=== PATIENT | female | born 1975 | race Caucasian/White ===

== ENCOUNTER 2022-12-24 21:37 | Observation (INO) | payer OTHER, SELFPAY ==
[2022-12-24 21:51] VITALS: BP 117/94; PULSE 84; RESP 18; TEMP 36.4; O2SAT 98; BMI 20.7
[2022-12-24 22:05] LABS: Appearance Urine Cloudy (Clear); Bilirubin Urine Negative (Negative); Blood Urine Negative (Negative); Color Urine Yellow (Yellow); Glucose Urine Negative (Negative); Ketones Urine Negative (Negative); Leukocyte Esterase Urine Trace (Negative); Nitrite Urine Negative (Negative); Protein Urine Trace (Negative); Urobilinogen Urine 0.2 (0.2-1.0)
--- NOTE | 2022-12-24 22:08 | ED.GENADULT ---
HPI - General Adult General Chief complaint: Flank Pain Stated complaint: flank pain Time Seen by Provider: 12/24/22 22:06 History of Present Illness HPI narrative: patient noticed pain last night around 2129 and unable to sleep much all night. c/o left flank pain radiating to the front of the LLQ. feeling nauseated. taken Tylenol and Motrin with no relief of pain. ice and heat and lidocaine patch to site with no relief still uncomfortable 47-year-old woman presenting to the emergency department with sharp left flank pain beginning around 24 hours ago. She thought maybe she had strained something but this has continued. Acetaminophen and ibuprofen offer no relief. She has tried icing and heat and lidocaine patches. Is restless in discomfort. Simply can not find a position to be comfortable. No dysuria though uncomfortable at the end of urination. No hematuria. Has been nauseated. Has had chills she thinks with the degree of pain. There is somewhat of a colicky nature perhaps? Pain seems to go from the flank now down to the left groin. Cannot do another night like this she says. No family or personal history of kidney stones. Does not think the constipation is the issue. Sounds like was hospitalized at age 19 for pyelonephritis, but she says ?I do not get urinary tract infections?. There is a history of endometriosis on review of record. Status post hysterectomy. It appears that endometriosis was noted to have affected the left ovary but both ovaries remain she reports. She admits that it is possible is currently ovulating. Later as we discuss pain management, noted that has been receiving ketamine infusions more recently for depressive symptoms. Related Data Home Medications Medication Instructions Recorded Confirmed gabapentin 400 mg capsule 400 mg PO TID 12/24/22 12/24/22 bupropion HCl 300 mg 24 hr tablet, 300 mg PO DAILY 12/25/22 12/25/22 extended release lorazepam 1 mg tablet 1 - 2 mg PO HS PRN 12/25/22 12/25/22 Allergies Allergy/AdvReac Type Severity Reaction Status Date / Time Penicillins Allergy Mild Hives Verified 12/24/22 21:56 Sulfa (Sulfonamide Allergy Mild hives Verified 12/24/22 21:56 Antibiotics) Review of Systems Status of ROS: Reports: 6 or more systems reviewed and unremarkable except as noted in History and below [facility] Medical History Anxiety ?F41.9 - Anxiety disorder, unspecified (ICD-10) Depression ?F32.A - Depression, unspecified (ICD-10) Cervical endometriosis ?N80.00 - Endometriosis of the uterus, unspecified (ICD-10) Surgical History S/P bilateral foot surgery ?Z98.890 - Other specified postprocedural states (ICD-10) H/O neck surgery ?Z98.890 - Other specified postprocedural states (ICD-10) H/O: hysterectomy ?Z90.710 - Acquired absence of both cervix and uterus (ICD-10) Social History What is your current living situation?: I presently have a place to live Problems where you live: no known problems Problems where you live details: NONE In the past 12 months, utilities in danger of being shut off: no In the past 12 mos, have been you worried that your food would run out before you had money to buy more?: never true In the past 12 mos, the food you bought just didn't last and you didn't have money to buy more?: never true Smoking Status: Never smoker Do you use any of these nicotine containing products: None How often do you have a drink containing alcohol: never AUDIT-C Alcohol total score: 0 Non-prescribed substance use: denies use Caffeine: Yes (coffee or soda) How often does anyone, including family, friends and others, physically hurt you: never How often does anyone, including family, friends and others, insult or talk down to you: never How often does anyone, including family, friends and others, threaten you with harm: never How often does anyone, including family, friends and others, scream or curse at you: never service: No Exam Narrative: Exam Narrative: Pleasant. Restless. Breathing easily. Skin is warm and dry. Heart in a regular rate and rhythm. She has well-perfused extremities and lower extremities are without edema. Abdomen with very active bowel sounds is soft and not particularly tender. No asymmetry or masses are appreciated. Little uncomfortable I think to palpation left adnexal area and is uncomfortable though to percussion in the left flank. No peritoneal signs. Const: Vital Signs, click to edit/add: Vital Signs - 24 hr 12/24/22 21:51 12/25/22 00:30 12/25/22 01:02 Temperature 97.5 F L Pulse Rate 63 Pulse Rate [Left P ulse Oximeter] 84 80 Respiratory Rate 18 18 16 Blood Pressure 137/82 Blood Pressure [Ri ght Upper Arm] 117/94 H 131/82 Pulse Oximetry 98 98 100 Oxygen Delivery Me thod Room Air Room Air 12/25/22 04:36 Temperature 97.9 F Pulse Rate 57 L Pulse Rate [Left P ulse Oximeter] Respiratory Rate 16 Blood Pressure 113/61 Blood Pressure [Ri ght Upper Arm] Pulse Oximetry 98 Oxygen Delivery Me thod Documenting provider has reviewed patient's vital signs: yes Course Vital Signs Vital signs: Initial Vital Signs Temperature 97.5 F L 12/24/22 21:51 Temperature Source Temporal Artery Scan 12/24/22 21:51 Pulse Rate 84 12/24/22 21:51 Respiratory Rate 18 12/24/22 21:51 Blood Pressure 117/94 H 12/24/22 21:51 Blood Pressure Mean 101 12/24/22 21:51 Blood Pressure Position Sitting 12/24/22 21:51 Pulse Oximetry 98 12/24/22 21:51 Oxygen Delivery Method Room Air 12/24/22 21:51 Vital Signs Temperature 97.5 F L 12/24/22 21:51 Pulse Rate 84 12/24/22 21:51 Respiratory Rate 18 12/24/22 21:51 Blood Pressure 117/94 H 12/24/22 21:51 Pulse Oximetry 98 12/24/22 21:51 Oxygen Delivery Method Room Air 12/24/22 21:51 Temperature 98.2 F 12/25/22 05:26 Pulse Rate 56 L 12/25/22 05:26 Respiratory Rate 16 12/25/22 05:26 Blood Pressure 104/65 12/25/22 05:26 Pulse Oximetry 95 12/25/22 05:26 Oxygen Delivery Method Room Air 12/25/22 05:26 Medical Decision Making MDM Narrative Medical decision making narrative: I suspect more of a urinary tract infection or ureteral colic/stone. I think this is favored by the clinical exam where it is not exactly reproducible. An adnexal issue like ovarian cyst is usually generates more reproducible discomfort on exam. Constipation may be playing a role but this seems atypical for that as well. By the time I am seeing Ms. Tom the urinalysis has been resulted. This is positive for leukocyte esterase, trace and 10 to 25 white cells on microscopy. No red cells. Does not appear to be typical infection but possible. This could also represent presence of ureteral stone. We discussed potential imaging. She would like to defer pending further laboratory evaluation to guide this. IV fluids had been initiated and received ketorolac. This did not help her pain. She also got Zofran. After discussion of further options, is seems preference would be for low-dose/pain dose ketamine infusion. This helped the pain a little bit, ?took the edge off?. Would still appreciate more medication for pain and was ordered for Dilaudid which ultimately took the edge off a little more though pain still quite present. Also received hyoscyamine. Given further Zofran and then Reglan for nausea after vomiting again. Discussed imaging modalities. I would consider doing a CT scan available though given her history Ms. Tom would prefer to start with pelvic/renal ultrasound which I think also is reasonable. We could try to assess the ureteral jets as well and for potential hydronephrosis. Per my conversation with instructional support assistant, has an 8 cm hemorrhagic-type cyst at the left ovary with free fluid in the pelvis. Good blood flow to the left ovary. The right ovary is not visualized. Renal jets are present. There is no hydronephrosis. It would appear unlikely that there is an impassable ureteral stone. The size and leaking of hemorrhagic fluid into the pelvis is a likely cause of somewhat atypical presentation. Pending Radiology over-read, anticipate conversation with developmental services worker on-call. I would consider for admission and surgery as was somewhat difficult to manage pain. Study: US Pelvis PELVIS TV-12/25/2022 2:05:35 AM Ordering Physician: Cathy Gomez Final Report: INDICATION: Left adnexal and flank pain. Endometriosis. History of partial hysterectomy 06/2022 COMPARISON: None available. FINDINGS: Transvaginal ultrasound examination of the female pelvis was performed. The uterus is absent, consistent with hysterectomy. The right ovary cannot be identified. The left ovary is moderately enlarged, measuring 8.7 x 6.3 x 8.7 centimeters. There is a thick-walled cyst measuring up to 3.2 centimeters in diameter, probably a hemorrhagic cyst. This could be an endometrioma however. There is normal color and pulse Doppler flow in the left ovary. There is a moderate amount of free fluid in the cul-de-sac and the left adnexal region. IMPRESSION: Absence of the uterus consistent with hysterectomy. Moderately enlarged left ovary with a complex thick-walled cyst, hemorrhagic cyst versus endometrioma. Unable to identify the right ovary. Moderate amount of free fluid in the cul-de-sac in the left adnexal region. Renal ultrasound was noted to be unremarkable Discussed this case with our OBGYN on-call who also personally reviewed the images. Looks like there is blood flow so less emergent but I do remain impressed with degree of pain that Ms. Tom was having. Perhaps there was some intermittent compromise? On reassessment it does appear that we have finally managed to get control of her pain. She remains concerned about this pain coming back and definitive management of what clearly appears to be inevitable surgery. Will be admitting for further pain control needs and consultation for potential surgery. Pain returning. Dosing diphenhydramine ahead of more hydromorphone. Perhaps this will limit nausea Medical Records Medical records reviewed: Yes I reviewed the patient's medical records Lab Data Lab results reviewed: Yes I reviewed the patient's lab results Labs: Lab Results 12/24/22 12/24/22 Range/Units 22:00 22:50 WBC 5.50 (4.50-11.00) K/uL RBC 3.91 L (4.00-5.20) m/uL Hgb 10.8 L (12.0-16.0) gm/dL Hct 33.8 (33.0-51.0) % MCV 86 (80-100) fL MCH 28 (26-34) pg MCHC 32 (32-36) gm/dL RDW Coeff of Cassi 12.9 (11.5-15.5) % Plt Count 233 (140-440) K/uL Neut % (Auto) 64.7 (42.0-72.0) % Lymph % (Auto) 22.4 (20-44) % Clinch % (Auto) 10.0 (0.0-11.0) % Eos % (Auto) 2.2 (0.0-7.0) % Baso % (Auto) 0.7 (0.0-3.0) % Neut # (Auto) 3.56 (1.7-7.0) K/uL Lymph # (Auto) 1.23 (0.90-2.90) K/uL Clinch # (Auto) 0.60 (0.00-0.90) K/UL Eos # (Auto) 0.12 (0.00-0.50) K/uL Baso # (Auto) 0.04 (0.00-0.30) K/uL Abs Immat Gran (auto) 0.00 (0.00-0.30) K/uL Imm/Tot Granulo (auto) 0.0 % Sodium 138 (135-149) mmol/L Potassium 3.4 L (3.6-5.1) mmol/L Chloride 105 (96-114) mmol/L Carbon Dioxide 24 (20-32) mmol/L BUN 13 (5-24) mg/dL Creatinine 0.7 (0.5-1.5) mg/dL Estimated Creat Clear 83.95 Estimated GFR 109 ml/min Glucose 111 (60-115) mg/dL Calcium 8.6 (8.4-10.6) mg/dL C-Reactive Protein 0.8 (0.5-1.0) mg/dL Urine Color Yellow (Yellow) Urine Appearance Cloudy A (Clear) Urine pH 6.0 (5.0-8.5) Ur Specific [place] 1.020 (1.000-1.030) Urine Protein Trace A (Negative) Urine Glucose (UA) Negative (Negative) Urine Ketones Negative (Negative) Urine Blood Negative (Negative) Urine Nitrite Negative (Negative) Urine Bilirubin Negative (Negative) Urine Urobilinogen 0.2 (0.2-1.0) Ur Leukocyte Esterase Trace A (Negative) Urine RBC 0-2 (0-2) Urine WBC 10-25 A (0-5) Ur Squamous Epith Cells Few (None-Few) Urine Bacteria Few A (None) Urine HCG, Qual Negative (Negative) Discharge Plan Discharge Clinical Impression: Hemorrhagic cyst of ovary, Abdominal pain, Endometriosis Patient Disposition: Admitted As Observation Condition: Improved
[2022-12-24 22:13] LABS: Bacteria Urine Few; RBC Urine 0-2 (0-2); Squamous Epithelial Cell Urine Few (None-Few)
[2022-12-24 22:30] LABS: Ur HCG Qualitative* Negative (Negative)
[2022-12-24] MEDS: 0.9 % SODIUM CHLORIDE 1000 ml 1,000 ML IV (23:01)
[2022-12-24] MEDS: KETOROLAC 30 MG/ML inj IVP (23:03)
[2022-12-24] MEDS: ONDANSETRON 2 MG/ML inj 4 MG IVP (23:03)
[2022-12-24 23:19] LABS: Basophils Absolute Auto 0.04 K/uL (0.00-0.30); Basophils Percent Auto 0.7 % (0.0-3.0); Eosinophils Absolute Auto 0.12 K/uL (0.00-0.50); Eosinophils Percent Auto 2.2 % (0.0-7.0); Hematocrit 33.8 % (33.0-51.0); Hemoglobin* 10.8 gm/dL (12.0-16.0); Lymphocytes Absolute Auto 1.23 K/uL (0.90-2.90); Lymphocytes Percent Auto 22.4 % (20-44); Mean Corpuscular HGB Conc 32 gm/dL (32-36); Mean Corpuscular Hemoglobin 28 pg (26-34); Mean Corpuscular Volume 86 fL (80-100); Neutrophils Absolute Auto 3.56 K/uL (1.7-7.0); Neutrophils Percent Auto 64.7 % (42.0-72.0); Platelet Count* 233 K/uL (140-440); RDW Coefficient of Variation % 12.9 % (11.5-15.5); Red Blood Count 3.91 m/uL (4.00-5.20)
[2022-12-24 23:22] LABS: Slide Review Reflex No
[2022-12-24 23:32] LABS: Chloride* 105 mmol/L (96-114); Potassium* 3.4 mmol/L (3.6-5.1); Sodium* 138 mmol/L (135-149)
[2022-12-24 23:35] LABS: Blood Urea Nitrogen* 13 mg/dL (5-24); Carbon Dioxide* 24 mmol/L (20-32); Creatinine* 0.7 mg/dL (0.5-1.5); Est. Creatinine Clearance* 83.95; Estimated Glomerular Filt Rate 109 ml/min; Glucose* 111 mg/dL (60-115)
[2022-12-24 23:36] LABS: Calcium* 8.6 mg/dL (8.4-10.6)
[2022-12-24] MEDS: KETAMINE HCL 20 MG in 0.9 % SODIUM CHLORIDE 100 ml 100 ML 300.6 MG IVPB (23:37)
[2022-12-24 23:38] LABS: C Reactive Protein* 0.8 mg/dL (0.5-1.0)
[2022-12-25] VITALS (9 sets, daily range): BP systolic 104–137; BP diastolic 61–86; PULSE 56–80; RESP 16–18; TEMP 36.1–36.9; O2SAT 95–100; BMI 21.9
--- NOTE | 2022-12-25 00:24 | CRLHL7_ITS ---
For Patients: As a result of the Cures Act, medical imaging exams and procedure reports are released immediately into your electronic medical record. You may view this report before your referring provider. If you have questions, please contact your health care provider. INDICATION: Left adnexal and flank pain. Endometriosis. History of partial hysterectomy 06/2022 COMPARISON: None available. FINDINGS: Transvaginal ultrasound examination of the female pelvis was performed. The uterus is absent, consistent with hysterectomy. The right ovary cannot be identified. The left ovary is moderately enlarged, measuring 8.7 x 6.3 x 8.7 centimeters. There is a thick-walled cyst measuring up to 3.2 centimeters in diameter, probably a hemorrhagic cyst. This could be an endometrioma however. There is normal color and pulse Doppler flow in the left ovary. There is a moderate amount of free fluid in the cul-de-sac and the left adnexal region. IMPRESSION: Absence of the uterus consistent with hysterectomy. Moderately enlarged left ovary with a complex thick-walled cyst, hemorrhagic cyst versus endometrioma. Unable to identify the right ovary. Moderate amount of free fluid in the cul-de-sac in the left adnexal region. Dictated by Eric Reece MD @ 12/25/2022 2:31:33 AM (Electronically Signed)
[2022-12-25] MEDS: HYDROmorphone 0.5 mg/0.5 ml inj 1 MG IVP (00:28)
[2022-12-25] MEDS: HYOSCYAMINE SULFATE 0.125 MG TAB 0.25 MG SUBLINGUAL (00:55)
--- NOTE | 2022-12-25 01:01 | CRLHL7_ITS ---
For Patients: As a result of the Century Cures Act, medical imaging exams and procedure reports are released immediately into your electronic medical record. You may view this report before your referring provider. If you have questions, please contact your health care provider. INDICATION: Left flank and adnexal pain. COMPARISON: None available. TECHNIQUE: Ultrasound examination of the retroperitoneum was performed with attention to the kidneys. FINDINGS: The kidneys are normal in their size, shape, and location. Cortical echogenicity and thickness is normal. There is no sign of hydronephrosis. The right kidney measures 12.3 x 4.7 x 5.2 cm. The left kidney measures 10.6 x 5.3 x 5.3 cm. There is normal color Doppler flow in both kidneys. The urinary bladder is normal in appearance. Bilateral ureteral jets are present. IMPRESSION: Normal ultrasound examination of the kidneys and urinary bladder. Dictated by Eric Reece MD @ 12/25/2022 2:34:01 AM (Electronically Signed)
[2022-12-25] MEDS: ONDANSETRON 2 MG/ML inj 4 MG IVP (01:15)
[2022-12-25] MEDS: METOCLOPRAMIDE HCL 10 MG in 0.9 % SODIUM CHLORIDE 100 ml 100 ML 306 MG IVPB (02:03)
[2022-12-25] MEDS: HYDROmorphone 0.5 mg/0.5 ml inj IVP ×4 (04:31→15:20)
[2022-12-25] MEDS: diphenhydrAMINE 50 MG/ML inj 12.5 MG IVP ×4 (04:32→22:21)
--- NOTE | 2022-12-25 05:04 | ED.NURSE ---
report to ms reynolds
--- NOTE | 2022-12-25 05:55 | PM.IMCN1 ---
Date of Consult Consult date: 12/25/22 Primary Care Provider: Kevin Newsome MD Consult Narrative Narrative: Samantha Tom is a 47 year old female [facility] Medical History Anxiety ?F41.9 - Anxiety disorder, unspecified (ICD-10) Depression ?F32.A - Depression, unspecified (ICD-10) Cervical endometriosis ?N80.00 - Endometriosis of the uterus, unspecified (ICD-10) Surgical History S/P bilateral foot surgery ?Z98.890 - Other specified postprocedural states (ICD-10) H/O neck surgery ?Z98.890 - Other specified postprocedural states (ICD-10) H/O: hysterectomy ?Z90.710 - Acquired absence of both cervix and uterus (ICD-10) Social History Smoking Status: Never smoker Do you use any of these nicotine containing products: None How often do you have a drink containing alcohol: never AUDIT-C Alcohol total score: 0 Non-prescribed substance use: denies use Meds Home Medications and Allergies Home Medications Medication Instructions Recorded Confirmed Type bupropion HCl 100 mg tablet 300 mg PO TID 12/24/22 12/24/22 History gabapentin 400 mg capsule 400 mg PO TID 12/24/22 12/24/22 History lorazepam 0.5 mg tablet (Ativan) 0.5 mg PO Q6H PRN 12/24/22 12/24/22 History Allergies Allergy/AdvReac Type Severity Reaction Status Date / Time Penicillins Allergy Mild Hives Verified 12/24/22 21:56 Sulfa (Sulfonamide Allergy Mild hives Verified 12/24/22 21:56 Antibiotics) Exam Const: Vital Signs, click to edit/add: Vital Signs - 24 hr 12/24/22 21:51 12/25/22 00:30 12/25/22 01:02 Temperature 97.5 F L Pulse Rate 63 Pulse Rate [Left P ulse Oximeter] 84 80 Respiratory Rate 18 18 16 Blood Pressure 137/82 Blood Pressure [Ri ght Upper Arm] 117/94 H 131/82 Pulse Oximetry 98 98 100 Oxygen Delivery Me thod Room Air Room Air 12/25/22 04:36 Temperature 97.9 F Pulse Rate 57 L Pulse Rate [Left P ulse Oximeter] Respiratory Rate 16 Blood Pressure 113/61 Blood Pressure [Ri ght Upper Arm] Pulse Oximetry 98 Oxygen Delivery Me thod Labs Labs: Short CBC 12/24/22 Range/Units 22:50 WBC 5.50 (4.50-11.00) K/uL Hgb 10.8 L (12.0-16.0) gm/dL Hct 33.8 (33.0-51.0) % Plt Count 233 (140-440) K/uL BMP 12/24/22 22:50 Sodium 138 Potassium 3.4 L Chloride 105 Carbon Dioxide 24 BUN 13 Creatinine 0.7 Glucose 111 Calcium 8.6 Urine 12/24/22 Range/Units 22:00 Urine Color Yellow (Yellow) Urine Appearance Cloudy A (Clear) Urine pH 6.0 (5.0-8.5) Ur Specific [place] 1.020 (1.000-1.030) Urine Protein Trace A (Negative) Urine Glucose (UA) Negative (Negative) Assessment and Plan Assessment and plan (1) Endometriosis: Status: Acute (2) Abdominal pain: Status: Acute (3) Hemorrhagic cyst of ovary: Status: Acute Plan [facility] Hospitalist eHospitalist was contacted with request of consultation on Samantha Tom. Chief complaint: Left-sided flank pain for 24 hrs HPI: 47-year-old female with history of endometriosis s/p hysterectomy comes in for acute onset 24 hours duration of cramping/dull flank pain with radiation to left groin. She could not find a comfortable spot. She tried [id number] pain medications that did not help. It is associated with nausea and vomiting. She denies any fever or chills. There is some dysuria at the end of urination. Denies any hematuria or hematochezia or abnormal vaginal bleeding. She thinks she might be ovulating. In the ER she was normotensive, afebrile, saturating fine on room air, nontachycardic. Labs showed normal WBCs and platelets with hemoglobin of 0.8. Chemistry showed calcium 3.4 otherwise normal BUN/creatinine and electrolytes. UA with trace leukoesterase, WBCs and few bacteria. Transvaginal ultrasound showed moderately enlarged left ovary with complex thick-walled cyst with hemorrhagic cyst versus endometrioma. Moderate amount of free fluid in cul-de-sac. Renal ultrasound showed normal renal examination of kidneys and bladder without hydronephrosis. She was given ketamine, Toradol with little improvement in pain. Eventually she got some diphenhydramine and Dilaudid with improvement in her pain. On-call MAGNETIC PROSPECTING OPERATOR was consulted and they will see the patient in the morning. She did have flow to the ovaries according to ultrasound report and ER physician so no emergent surgery was needed but MAGNETIC PROSPECTING OPERATOR will consult in the morning. Patient is being admitted for pain control and MAGNETIC PROSPECTING OPERATOR consultation. She is expecting to undergo surgery today. She had questions whether or not this pain is truly related to ovarian cyst and not the kidneys. She denies any dysuria or urethral pain but does report the same pain as above when she pees Home Medications: see EMR Pertinent Medical History: See EMR Pertinent Social History: See EMR Exam (performed via interactive video with assistance of bedside nurse; ): General: alert, cooperative, no acute distress HEENT: oral mucosa pink and moist without erythema Lungs: clear to auscultation bilaterally without crackle or wheeze CV: regular rate and rhythm without loud murmur rub or gallop Abd: reports tenderness Ext: no pitting edema noted Skin: no rashes, bruises or lesions. Neuro:[alert, oriented x 3. facial muscles grossly intact, moves all extremities without any significant focal deficit appreciated by nurse Labs and imaging were reviewed Assessment and Plan: Left flank pain secondary to hemorrhagic ovarian cyst likely acute hemorrhage into the cyst versus endometrioma History of endometriosis s/p hystrectomy 6 months ago Continue with as needed Dilaudid. LR at 75 cc per replace potassium. MAGNETIC PROSPECTING OPERATOR consultation in the morning. keep NPO. No pharm dvt px. CODE STATUS: Full code Thank you for including Nathan Armas in the patients care. This service is available for further assistance as requested by your care team by calling [phone].
[2022-12-25] MEDS: 0.9 % SODIUM CHLORIDE 1000 ml 1,000 ML 75 ML IV (06:32)
--- NOTE | 2022-12-25 06:56 | PC.NURSE ---
ADMISSION NOTE: Pt admitted for pain control r/t ovarian cyst. Pt up to the floor with pain 2/10, reports pain as tolerable. Aqua K pad given. Pt reported having nausea in the ER, denies nausea at this time, no emesis. Pt instructed that she is NPO for a potential of having sx today, pt acknowledged understanding. Pt ambulated in the room independently, steady on her feet, denies dizziness or lightheadedness. Pt denies CP and SOB. VSS on RA. Afebrile.
--- NOTE | 2022-12-25 07:53 | CRLHL7_ITS ---
For Patients: As a result of the Century Cures Act, medical imaging exams and procedure reports are released immediately into your electronic medical record. You may view this report before your referring provider. If you have questions, please contact your health care provider. INDICATION: POSSIBLE STONE. LARE LEFT OVARIAN ENDOMETRIOMA. LEFT FLANK PAIN. ABD PAIN. TECHNIQUE: CT abdomen and pelvis acquired with 61 cc Isovue 370 IV contrast. COMPARISON: Pelvic ultrasound dated 12/25/2022. FINDINGS: Lower chest: Dependent hypoventilatory changes. Liver: 1.9 cm homogeneous hyper enhancing cyst subcapsular segment 7 (2; 24) lesion. Differential diagnostic considerations include a flash filling hepatic hemangioma. Further characterization is recommended given the pelvic lesion described below. Gallbladder and bile ducts: Unremarkable. No stones or inflammation. No biliary dilatation. Pancreas: Unremarkable. No mass or inflammation. Spleen: Unremarkable. Normal in size. No masses. Adrenal glands: Unremarkable. No nodules. Kidneys: Unremarkable. No suspicious masses, stones, or hydronephrosis. GI tract: Unremarkable. Normal in caliber. No sign of mass or inflammation. Normal appendix. Vasculature: Abdominal aorta is normal in caliber. Mesenteric arteries are patent. Lymph nodes: No lymphadenopathy. Peritoneum/Abdominal Wall: Unremarkable. No sign of mass or infiltration. No free air or significant free fluid. Pelvis: Corresponding to the complex cystic pelvic mass on the recent prior pelvic ultrasound, there is a complex cystic mass measuring 7.5 cm by 8.3 cm x 7.2 cm (2; 119 and 5; 66) with solid enhancing elements. Differential diagnostic considerations, generally speaking, include infectious/inflammatory (e.g. PID) and neoplastic (e.g. Ovarian carcinoma) disease. If the patient is not acutely ill, the latter is the leading differential of concern. Associated small volume low-density pelvic ascites. The normal right ovary is identified along the right pelvic sidewall (series 2; image 110). The uterus and a normal left ovary are not identified. Please correlate with the patient`s clinical history as to prior hysterectomy. Bones: Unremarkable for age. IMPRESSION: 1. Complex cystic pelvic mass for which the differential includes neoplastic an acute infectious/inflammatory disease (e.g. ovarian carcinoma, PID). If the patient is not acutely ill, neoplastic disease is the leading concern. CERAMIC SPRAYER referral is recommended for further management. 2. Incidental hepatic lesion which may represent a flash filling hepatic hemangioma. However, given the pelvic lesion, further characterization with MRI is suggested. Please note that all CT scans at this facility use dose modulation, iterative reconstruction, and/or weight-based dosing when appropriate to reduce radiation dose to as low as reasonably achievable. Dictated by Aurelio Lazcano MD @ 12/25/2022 10:24:55 AM (Electronically Signed)
[2022-12-25] MEDS: GABAPENTIN 100 MG CAPSULE 400 MG PO ×3 (08:38→21:02)
[2022-12-25] MEDS: buPROPion XL 150 MG TABLET 300 MG PO (08:41)
[2022-12-25] MEDS: POTASSIUM CHLORIDE 10 MEQ/100 ML PIGGYBACK 100 MEQ IVPB (08:41)
[2022-12-25] MEDS: hydrOXYzine pamoate 25 MG CAPSULE PO ×2 (08:49→15:19)
--- NOTE | 2022-12-25 13:20 | P.GYNCN_ITS ---
SENIOR SOFTWARE DEVELOPER - CN: HPI Data of Consult Time Seen by Provider: 07:30 Date Seen: 12/25/22 Consult date: 12/25/22 Requesting Physician: Jessica Garber MD Primary Care Provider: Kevin Newsome MD Consult Narrative Narrative: Samantha Tom is a 47 year old female who presented to the ER after experiencing worsening severe left flank pain. Patient states that symptoms started in the past 2 days, but worsened last night. Patient described pain in her left flank that then started to move towards the left lower abdominal quadrant as well as the left inguinal area. She did try acetaminophen and ibuprofen w/o relief, also tried ice and heating pad thinking that she may have pulled a muscle. Pain was accompanied by nausea. Denies dysuria, urgency, diarrhea, has been constipated, has felt chills, no fever. Patient had lab work and imaging performed. Normal WBC, hemoglobin at 10.8, normal chemistry, urine with trace leukocyte esterase, looks contaminated. Pelvic US finds a left ovary that is enlarged measuring 8.7 x 6.3 x 8.7 cm. There is a thick-walled cyst measuring up to 3.2 cm in diameter, probably a hemorrhagic cyst. This could be an endometrioma however. Unable to identify the right ovary. Moderate amount of free fluid in the cul-de-sac in the left adnexal region. Patient also completed a renal ultrasound that was found unremarkable. Patient states to have had a total laparoscopic hysterectomy on June 2022 at [facility]-her Ob-Strategic Manager does surgery at this hospital. States that she was told there was a left ovarian cyst stuck to the pelvic wall. Patient states that she was asked about pain in the left side on her post op days but that she has never experienced severe pain on this area before. Previous medical, surgical, medications, allergy history reviewed from medical record. cc:: CC: Jessica Garber MD [facility] Medical History Anxiety ?F41.9 - Anxiety disorder, unspecified (ICD-10) Depression ?F32.A - Depression, unspecified (ICD-10) Cervical endometriosis ?N80.00 - Endometriosis of the uterus, unspecified (ICD-10) Surgical History S/P bilateral foot surgery ?Z98.890 - Other specified postprocedural states (ICD-10) H/O neck surgery ?Z98.890 - Other specified postprocedural states (ICD-10) H/O: hysterectomy ?Z90.710 - Acquired absence of both cervix and uterus (ICD-10) Social History What is your current living situation?: I presently have a place to live Problems where you live: no known problems Problems where you live details: NONE In the past 12 months, utilities in danger of being shut off: no In the past 12 mos, have been you worried that your food would run out before you had money to buy more?: never true In the past 12 mos, the food you bought just didn't last and you didn't have money to buy more?: never true Smoking Status: Never smoker Do you use any of these nicotine containing products: None How often do you have a drink containing alcohol: never AUDIT-C Alcohol total score: 0 Non-prescribed substance use: denies use Caffeine: Yes (coffee or soda) How often does anyone, including family, friends and others, physically hurt you : never How often does anyone, including family, friends and others, insult or talk down to you: never How often does anyone, including family, friends and others, threaten you with harm: never How often does anyone, including family, friends and others, scream or curse at you: never service: No Meds Home Medications and Allergies Home Medications Medication Instructions Recorded Confirmed Type gabapentin 400 mg capsule 400 mg PO TID 12/24/22 12/24/22 History bupropion HCl 300 mg 24 hr tablet, 300 mg PO DAILY 12/25/22 12/25/22 History extended release lorazepam 1 mg tablet 1 - 2 mg PO HS PRN 12/25/22 12/25/22 History Allergies Allergy/AdvReac Type Severity Reaction Status Date / Time Penicillins Allergy Mild Hives Verified 12/24/22 21:56 Sulfa (Sulfonamide Allergy Mild hives Verified 12/24/22 21:56 Antibiotics) SENIOR SOFTWARE DEVELOPER - Exam Physical Exam: Vital signs: Temp Pulse Resp BP Pulse Ox O2 Del Method 97.0 F L 63 16 117/71 100 Room Air 12/25/22 12:25 12/25/22 12:25 12/25/22 12:25 12/25/22 12:25 12/25/22 12:25 12/25/22 12:25 Narrative: VITAL SIGNS: As noted above. GENERAL APPEARANCE: Alert, cooperative female in no acute distress. MOOD & AFFECT: Normal. ABDOMEN: Soft, non-distended and mildly tender to palpation at the lower abdominal quadrants. No guarding, no rebound. Bowel sounds present. Left flank tender to palpation. : No bleeding, no abnormal discharge EXTREMITIES: Nonedematous. Well perfused. Nontender. SENIOR SOFTWARE DEVELOPER - Results Labs Labs: Short CBC 12/24/22 Range/Units 22:50 WBC 5.50 (4.50-11.00) K/uL Hgb 10.8 L (12.0-16.0) gm/dL Hct 33.8 (33.0-51.0) % Plt Count 233 (140-440) K/uL BMP 12/24/22 22:50 Sodium 138 Potassium 3.4 L Chloride 105 Carbon Dioxide 24 BUN 13 Creatinine 0.7 Glucose 111 Calcium 8.6 Urine 12/24/22 Range/Units 22:00 Urine Color Yellow (Yellow) Urine Appearance Cloudy A (Clear) Urine pH 6.0 (5.0-8.5) Ur Specific [place] 1.020 (1.000-1.030) Urine Protein Trace A (Negative) Urine Glucose (UA) Negative (Negative) Assessment and Plan Assessment and plan (1) Endometriosis: Status: Acute Plan 1. Recommend performance of abdomen/pelvic CT scan r/o kidney stones, urologic pathology. 2. Discussed that in terms of left ovarian cyst, there is evidence of blood flow, history of endometrioma on the left side, low risk for torsion, high risk for significant disruption of the left pelvic side wall, retroperitoneum. Patient does not have an acute abdomen either. Surgical intervention would be best after left ureteral stent placement, urology service available. If pain is not well managed with continued observation today, discussed with patient that I would recommend transfer to a higher level of care. If pain is manageable, then she would be able to follow up with her Cabinetmaker Supervisor as an outpatient and plan surgery. Patient understood information and is in agreement. Case was discussed this morning after seeing patient with Dr. Cohen, Hospitalist as patient was admitted under his service. Recommendations given verbally to him as I was unable to document this note until now 12/25/22 at 6:15pm due to management of other patients.
[2022-12-25] MEDS: KETOROLAC 30 MG/ML inj IVP ×2 (14:10→22:22)
[2022-12-25] MEDS: DOCUSATE SODIUM 100 MG CAPSULE PO ×2 (14:10→21:03)
[2022-12-25] MEDS: LORazepam 0.5 MG TABLET PO (15:20)
--- NOTE | 2022-12-25 15:20 | P.IMHP_ITS ---
Hospitalist- H&P: HPI History of Present Illness Time Seen by Provider: 08:00 Date Seen: 12/25/22 Chief complaint: flank pain Narrative: Samantha Tom is a 47 year old woman who presents to the hospital with 24 to 48 hour history of evolving abdominal pain. Over time it lateralize to left flank radiating into the groin at times. Has never had anything like this in the past. Initially attempted seen if time would resolve it, attempting to defecate, [id number] acetaminophen and ibuprofen, trying to find a comfortable position, but despite all her efforts her condition worsened over time. Pain seemed to get so intense that at its worst it was 9/10. Started having nausea and even retching with it. Ultimately decided to come in for assessment. Historically has been followed and treated for endometriosis with various surgeries for the same at [facility]. Initially planned on having her son public transit trolley driver up therapy but changed her mind thinking that would be more simple if she were seen here. Review of Systems Status of ROS: Reports: 10 or more systems reviewed and unremarkable except as noted in History and below Narrative: No fevers, rigors, diaphoresis. No myalgias or arthralgias. No night sweats, weight loss, or weight gain. Denies dysuria, urgency, frequency, hematuria. Interestingly she describes mildly increased discomfort after urination. Bowel movement did not improve pain. Denies dysphagia, odynophagia, dyspepsia. No diarrhea or constipation. Denies chest heaviness, pressure, tightness, or pain. Denies syncope or near- syncope. Denies palpitations or chest fluttering. Denies cough, dyspnea at rest, paroxysmal nocturnal dyspnea, orthopnea. Generally physically active and does not have dyspnea with exertion either. No trauma, injury, illness, or blood loss. IV analgesics presently ordered help but are not sufficient to keep her comfortable for very long. Denies nausea presently. [facility] Medical History Anxiety ?F41.9 - Anxiety disorder, unspecified (ICD-10) Depression ?F32.A - Depression, unspecified (ICD-10) Cervical endometriosis ?N80.00 - Endometriosis of the uterus, unspecified (ICD-10) Surgical History S/P bilateral foot surgery ?Z98.890 - Other specified postprocedural states (ICD-10) H/O neck surgery ?Z98.890 - Other specified postprocedural states (ICD-10) H/O: hysterectomy ?Z90.710 - Acquired absence of both cervix and uterus (ICD-10) Social History What is your current living situation?: I presently have a place to live Problems where you live: no known problems Problems where you live details: NONE In the past 12 months, utilities in danger of being shut off: no In the past 12 mos, have been you worried that your food would run out before you had money to buy more?: never true In the past 12 mos, the food you bought just didn't last and you didn't have money to buy more?: never true Smoking Status: Never smoker Do you use any of these nicotine containing products: None How often do you have a drink containing alcohol: never AUDIT-C Alcohol total score: 0 Non-prescribed substance use: denies use Caffeine: Yes (coffee or soda) How often does anyone, including family, friends and others, physically hurt you : never How often does anyone, including family, friends and others, insult or talk down to you: never How often does anyone, including family, friends and others, threaten you with harm: never How often does anyone, including family, friends and others, scream or curse at you: never service: No Meds Home Medications and Allergies Home Medications Medication Instructions Recorded Confirmed Type gabapentin 400 mg capsule 400 mg PO TID 12/24/22 12/24/22 History bupropion HCl 300 mg 24 hr tablet, 300 mg PO DAILY 12/25/22 12/25/22 History extended release lorazepam 1 mg tablet 1 - 2 mg PO HS PRN 12/25/22 12/25/22 History Allergies Allergy/AdvReac Type Severity Reaction Status Date / Time Penicillins Allergy Mild Hives Verified 12/24/22 21:56 Sulfa (Sulfonamide Allergy Mild hives Verified 12/24/22 21:56 Antibiotics) Exam Narrative: Exam Narrative: I examine in her in her hospital room. Appears comfortable and in no acute distress. Able to move herself independently in her bed and transfer independently. Vision and hearing are grossly normal. Alert, oriented to self, place, time, situation. Friendly, articulate, cooperative. Mood and affect are congruent. No icterus or conjunctival injection. Buccal mucosa is moist. Neck is supple. Lungs clear to auscultation. No CVA discomfort on the right with minimal discomfort on the left with thumping. Heart tones with regular rhythm, normal S1-S2. Abdomen with active bowel sounds, soft. No peritoneal signs. Extremities without edema. Capillary refill less than 3 seconds. No focal motor neurologic deficits. Independent transfer, station, and gait. Const: Vital Signs, click to edit/add: Vital Signs - 24 hr 12/24/22 21:51 12/25/22 00:30 12/25/22 01:02 Temperature 97.5 F L Pulse Rate 63 Pulse Rate [Left P ulse Oximeter] 84 80 Pulse Rate [Right Pulse Oximeter] Respiratory Rate 18 18 16 Blood Pressure 137/82 Blood Pressure [Ri ght Arm] Blood Pressure [Ri ght Upper Arm] 117/94 H 131/82 Pulse Oximetry 98 98 100 [facility] Room Air 12/25/22 04:36 12/25/22 05:26 12/25/22 08:20 Temperature 97.9 F 98.2 F 97.2 F L Pulse Rate 57 L Pulse Rate [Left P ulse Oximeter] Pulse Rate [Right Pulse Oximeter] 56 L 68 Respiratory Rate 16 16 16 Blood Pressure 113/61 Blood Pressure [Ri ght Arm] 104/65 125/67 Blood Pressure [Ri ght Upper Arm] Pulse Oximetry 98 95 100 [facility] Room Air 12/25/22 12:25 Temperature 97.0 F L Pulse Rate Pulse Rate [Left P ulse Oximeter] Pulse Rate [Right Pulse Oximeter] 63 Respiratory Rate 16 Blood Pressure Blood Pressure [Ri ght Arm] 117/71 Blood Pressure [Ri ght Upper Arm] Pulse Oximetry 100 [facility]xygen [facility] Room Air Hospitalist - H&P: Result Labs Labs: Short CBC 12/24/22 Range/Units 22:50 WBC 5.50 (4.50-11.00) K/uL Hgb 10.8 L (12.0-16.0) gm/dL Hct 33.8 (33.0-51.0) % Plt Count 233 (140-440) K/uL BMP 12/24/22 22:50 Sodium 138 Potassium 3.4 L Chloride 105 Carbon Dioxide 24 BUN 13 Creatinine 0.7 Glucose 111 Calcium 8.6 Urine 12/24/22 Range/Units 22:00 Urine Color Yellow (Yellow) Urine Appearance Cloudy A (Clear) Urine pH 6.0 (5.0-8.5) Ur Specific [place] 1.020 (1.000-1.030) Urine Protein Trace A (Negative) Urine Glucose (UA) Negative (Negative) Imaging Transvaginal pelvic ultrasound: Radiologist's impression: FINDINGS: Transvaginal ultrasound examination of the female pelvis was performed. The uterus is absent, consistent with hysterectomy. The right ovary cannot be identified. The left ovary is moderately enlarged, measuring 8.7 x 6.3 x 8.7 centimeters. There is a thick-walled cyst measuring up to 3.2 centimeters in diameter, probably a hemorrhagic cyst. This could be an endometrioma however. There is normal color and pulse Doppler flow in the left ovary. There is a moderate amount of free fluid in the cul-de-sac and the left adnexal region. IMPRESSION: Absence of the uterus consistent with hysterectomy. Moderately enlarged left ovary with a complex thick-walled cyst, hemorrhagic cyst versus endometrioma. Unable to identify the right ovary. Moderate amount of free fluid in the cul-de-sac in the left adnexal region. Renal ultrasound: Radiologist's impression: FINDINGS: The kidneys are normal in their size, shape, and location. Cortical echogenicity and thickness is normal. There is no sign of hydronephrosis. The right kidney measures 12.3 x 4.7 x 5.2 cm. The left kidney measures 10.6 x 5.3 x 5.3 cm. There is normal color Doppler flow in both kidneys. The urinary bladder is normal in appearance. Bilateral ureteral jets are present. IMPRESSION: Normal ultrasound examination of the kidneys and urinary bladder. Assessment and Plan Assessment and plan (1) Hemorrhagic cyst of ovary: Status: Acute (2) Abdominal pain: Status: Acute (3) Endometriosis: Status: Acute Plan 1. Reviewed impression with patient and with WINDOW AND DOOR INSTALLER surgeon. 2. I adjusted some of her analgesics. 3. I indicated to our multiple knife edge trimmer operator surgeon that the hospitalist will no longer be involved in the care of this patient. This is a multiple knife edge trimmer operator patient will requires multiple knife edge trimmer operator care and services. 4. If the multiple knife edge trimmer operator physician believes there is a medical problem that hospitalist can assist with, please reconsult us.
[2022-12-25] MEDS: HYDROmorphone 0.5 mg/0.5 ml inj 0.2 MG IVP (17:14)
--- NOTE | 2022-12-25 18:45 | PC.NURSE ---
Pt alert and oriented. Pt cooperative and talkative at times. VSS. Pt had complaints ranging from 2-7; See EMAR for intervention. Pt had complaints of nausea as well see EMAR for intervention.? Pt was anxious during parts of shift when awaiting results from CT scan. This was communicated with care team. Dr. Garber talked with Pt about plans for the rest of today and overnight with pain regimen and follow up with Pt?s OBGYN. Pt advanced to regular diet and tolerating well. ? ?
[2022-12-25] MEDS: ACETAMINOPHEN 500 MG TABLET 1000 MG PO (21:02)
[2022-12-25] MEDS: OXYCODONE 5 MG TABLET PO (21:03)
--- NOTE | 2022-12-25 21:20 | P.EN_ITS ---
Chart Event Note Time Seen by Provider: 16:00 Date Seen: 12/25/22 Chart Event Note: I was asked by the housecalls nurse to address patient's questions and help coordinate her care. I reviewed her ER course, admit circumstances, and imaging. I paged out the OBGYN, Dr. Barrett ([facility]). This is her OBGYN who performed her hysterectomy in June of this year. While Dr. Barrett was in the OR, I spoke with her partner - who conferred regarding Samantha's pain, presentation, imaging. This most likely represents an endometrioma/hemorrhagic cyst as her left ovary was directly visualized in June. Endometriomas were noted at that time. Plan: d/c fluids and IV meds - transition to oral pain medication regular diet d/c home when pain is controlled with orals; close f/u with Dr. Barrett in the office. Prolonged Physician Services [id number] ([facility]) in conjunction with: [id number] (admission day; 75 mins + 15mins extra = 90)
[2022-12-26 02:50] VITALS: BP 102/64; PULSE 68; RESP 14; TEMP 36.4; O2SAT 99
[2022-12-26] MEDS: OXYCODONE 5 MG TABLET PO ×3 (02:56→12:54)
[2022-12-26] MEDS: ACETAMINOPHEN 500 MG TABLET 1000 MG PO ×2 (02:57→10:30)
[2022-12-26] MEDS: LORazepam 0.5 MG TABLET PO (03:05)
[2022-12-26 07:00] VITALS: BP 123/73; PULSE 65; RESP 14; RESP 16; TEMP 36.3; O2SAT 100
--- NOTE | 2022-12-26 07:32 | PC.NURSE ---
Pt alert and oriented x3. Afebrile. Pt reports 8/10 pain in left flank and hip, pain managed with PRN medications. Pt denies chest pain, SOB, and N/V. Pt is up ad yao in room. Pt slept throughout most of night.?
[2022-12-26] MEDS: GABAPENTIN 100 MG CAPSULE 400 MG PO (08:40)
[2022-12-26] MEDS: buPROPion XL 150 MG TABLET 300 MG PO (08:40)
[2022-12-26] MEDS: KETOROLAC 30 MG/ML inj IVP (08:51)
[2022-12-26] MEDS: ONDANSETRON 2 MG/ML inj 4 MG IVP (08:51)
[2022-12-26] MEDS: hydrOXYzine pamoate 25 MG CAPSULE PO (10:30)
--- NOTE | 2022-12-26 13:43 | PC.NURSE ---
End of Shift: Pt remained AO throughout shift, tolerating regular diet well, ambulating independently. Continent with bladder, no BM reported throughout shift. Pt reports pain between 4-8/10 in left-sided abdomen/flank. Pt had questions/concerns regarding pain management plan post discharge as well as CT results and f/u appointments. MD met with pt to discuss plan, results, and to answer any further questions. All questions answered.
--- NOTE | 2022-12-30 11:41 | P.DS_ITS ---
DS: Providers Provider Time Seen by Provider: 09:00 Date Seen: 12/26/22 Date of admission: 12/25/22 05:04 Primary care physician: Kevin Newsome MD Admitting Clinician: Jessica Garber MD Consults: Rosalee Mccarty MD Attending Physician on discharge: Alonso Cohen MD Date of Discharge: 12/26/22 DS: Diagnosis Discharge Diagnosis (1) Abdominal pain: Status: Acute (2) Hemorrhagic cyst of ovary: Status: Acute (3) Endometrioma of ovary: Status: Acute (4) Endometriosis: Status: Acute DS: Summary Hospital Course Hospital Course: HPI: Samantha Tom is a 47 year old woman who presents to the hospital with 24 to 48 hour history of evolving abdominal pain. Over time it lateralize to left flank radiating into the groin at times. Has never had anything like this in the past. Initially attempted seen if time would resolve it, attempting to defecate, [id number] acetaminophen and ibuprofen, trying to find a comfortable position, but despite all her efforts her condition worsened over time. Pain seemed to get so intense that at its worst it was 9/10. Started having nausea and even retching with it. Ultimately decided to come in for assessment. Historically has been followed and treated for endometriosis with various surgeries for the same at [facility]. Initially planned on having her son fuel truck driver up therapy but changed her mind thinking that would be more simple if she were seen here. Our water main installer helper surgeon saw the patient in consultation. I signed the patient over to the water main installer helper surgeon given that the only problem was a gynecologic one that required water main installer helper intervention. Unfortunately the water main installer helper surgeon did not the see the patient subsequently at all. The hospitalists thus made contact with her primary water main installer helper surgeon and we were able to make outpatient follow-up plans as specified. Patient was converted from IV meds to oral meds. She was stable overnight. Discharged on 12/26/2022 as specified in the discharge plans. Patient was agreeable with the plan. Status at Discharge Functional status at discharge: independent ambulation Overall status at discharge: patient is not back to baseline Time Spent with Patient Time attestation: Total time spent providing and/or coordinating discharge services: Time spent: Greater than 30 minutes Exam Narrative: Exam Narrative: I examine in her in her hospital room. Appears comfortable and in no acute distress. Able to move herself independently in her bed and transfer independently. Vision and hearing are grossly normal. Alert, oriented to self, place, time, situation. Friendly, articulate, cooperative. Mood and affect are congruent. No icterus or conjunctival injection. Buccal mucosa is moist. Neck is supple. Lungs clear to auscultation. No CVA discomfort on the right with minimal discomfort on the left with thumping. Heart tones with regular rhythm, normal S1-S2. Abdomen with active bowel sounds, soft. Tender. No peritoneal signs. Extremities without edema. Capillary refill less than 3 seconds. No focal motor neurologic deficits. Independent transfer, station, and gait. DS: Data Imaging Transvaginal ultrasound: Attestation: I have reviewed the pertinent imaging results. Radiologist's impression: IMPRESSION: Absence of the uterus consistent with hysterectomy. Moderately enlarged left ovary with a complex thick-walled cyst, hemorrhagic cyst versus endometrioma. Unable to identify the right ovary. Moderate amount of free fluid in the cul-de-sac in the left adnexal region. Renal ultrasound: Radiologist's impression: FINDINGS: The kidneys are normal in their size, shape, and location. Cortical echogenicity and thickness is normal. There is no sign of hydronephrosis. The right kidney measures 12.3 x 4.7 x 5.2 cm. The left kidney measures 10.6 x 5.3 x 5.3 cm. There is normal color Doppler flow in both kidneys. The urinary bladder is normal in appearance. Bilateral ureteral jets are present. IMPRESSION: Normal ultrasound examination of the kidneys and urinary bladder. CT scan of abdomen and pelvis: Radiologist's impression: FINDINGS: Lower chest: Dependent hypoventilatory changes. Liver: 1.9 cm homogeneous hyper enhancing cyst subcapsular segment 7 (2; 24) lesion. Differential diagnostic considerations include a flash filling hepatic hemangioma. Further characterization is recommended given the pelvic lesion described below. Gallbladder and bile ducts: Unremarkable. No stones or inflammation. No biliary dilatation. Pancreas: Unremarkable. No mass or inflammation. Spleen: Unremarkable. Normal in size. No masses. Adrenal glands: Unremarkable. No nodules. Kidneys: Unremarkable. No suspicious masses, stones, or hydronephrosis. GI tract: Unremarkable. Normal in caliber. No sign of mass or inflammation. Normal appendix. Vasculature: Abdominal aorta is normal in caliber. Mesenteric arteries are patent. Lymph nodes: No lymphadenopathy. Peritoneum/Abdominal Wall: Unremarkable. No sign of mass or infiltration. No free air or significant free fluid. Pelvis: Corresponding to the complex cystic pelvic mass on the recent prior pelvic ultrasound, there is a complex cystic mass measuring 7.5 cm by 8.3 cm x 7.2 cm (2; 119 and 5; 66) with solid enhancing elements. Differential diagnostic considerations, generally speaking, include infectious/inflammatory (e.g. PID) and neoplastic (e.g. Ovarian carcinoma) disease. If the patient is not acutely ill, the latter is the leading differential of concern. Associated small volume low-density pelvic ascites. The normal right ovary is identified along the right pelvic sidewall (series 2; image 110). The uterus and a normal left ovary are not identified. Please correlate with the patient`s clinical history as to prior hysterectomy. Bones: Unremarkable for age. IMPRESSION: 1. Complex cystic pelvic mass for which the differential includes neoplastic an acute infectious/inflammatory disease (e.g. ovarian carcinoma, PID). If the patient is not acutely ill, neoplastic disease is the leading concern. LANGUAGE AND LITERATURE DIVISION CHAIR referral is recommended for further management. 2. Incidental hepatic lesion which may represent a flash filling hepatic hemangioma. However, given the pelvic lesion, further characterization with MRI is suggested. Discharge Plan Discharge Disposition: Home, Self-Care Date of Admission: 12/25/22 05:04 Attending Provider on Discharge: Alonso Cohen Consulting Providers: Rosalee Mccarty Primary Care Provider: Kevin Newsome Condition: Improved Anticipated Discharge Date/Time: 12/26/22 09:00 Discharge Medications: New docusate sodium 100 mg Capsule 100 mg PO BID PRN (Reason: Constipation) Qty: 30 0RF oxycodone 5 mg Tablet 5 mg PO Q4H PRN7 Days Qty: 20 0RF Continued gabapentin 400 mg capsule 400 mg PO TID bupropion HCl 300 mg tablet extended release 24 hr 300 mg PO DAILY lorazepam 1 mg tablet 1 - 2 mg PO HS PRN Discharge Orders: Discharge Order (Routine); Ordered 12/26/22 Ordered By: Alonso Cohen Patient Education: Laxative, Stool Softeners (By mouth) (Doculax, Colace, Colace Clear, DSS), Oxycodone, Rapid Release (By mouth), Endometriosis (DC), Ovarian Cyst (DC), Constipation (DC), Narcotic Safety (DC), Safe Disposal of Opioids (DC) Additional Instructions: Follow-up with your LANGUAGE AND LITERATURE DIVISION CHAIR surgeon Activity Level: No Restrictions and Activity as Tolerated Discharge Diet: Regular Follow Up Appointments: Kevin Newsome MD [Primary Care Provider] - Forms: [employer] Info Instructions
== END 2022-12-26 12:40 | disposition home or self-care (01) ==
LOC: ED 12-25 04:04 → MEDSURG 12-25 05:08
PROVIDERS: Admitting Provider Emergency Medicine; Emergency Provider Family Medicine; PCP Family Medicine; Visit Provider Emergency Medicine
DX: N83.209 Unspecified ovarian cyst, unspecified side (principal); N80.129 Deep endometriosis of ovary, unspecified ovary; N80.9 Endometriosis, unspecified; R82.998 Other abnormal findings in urine; R30.0 Dysuria; R11.0 Nausea; R68.83 Chills (without fever); F32.A Depression, unspecified; R10.32 Left lower quadrant pain; Z98.890 Other specified postprocedural states; Z90.710 Acquired absence of both cervix and uterus; Z87.42 Personal history of other diseases of the female genital tract
CPT/HCPCS: 36415; 74177; 76775; 76830; 80048; 81003; 81015; 81025; 85025; 86140; 87086; 93976; 96361; 96365; 96366; 96367; 96375; 96376; 99284; A9270; G0378; J1170; J1200; J1885; J2405; J2765; J3480; J3490; J7030; Q9967